=== PATIENT | female | born 1950 | race Caucasian/White ===

== ENCOUNTER 2020-04-23 01:36 | Emergency (ER) | payer OTHER ==
[2020-04-23 02:00] VITALS: BP 178/83; PULSE 90; TEMP 98.7; BMI 41.1
[2020-04-23 03:01] LABS: EPI CELLS 22 /uL (0-25.1); HYALINE CASTS 11 /uL (0-3.1); URINE APPEARANCE CLEAR; URINE BACTERIA 255 /uL (0-1359); URINE BILIRUBIN NEGATIVE (NEGATIVE); URINE COLOR YELLOW; URINE GLUCOSE (UA) NEGATIVE (NEGATIVE); URINE KETONE NEGATIVE (NEGATIVE); URINE LEUK ESTERASE 2+ (NEGATIVE); URINE NITRITE NEGATIVE (NEGATIVE); URINE PROTEIN NEGATIVE (NEGATIVE); URINE RBC 6 /uL (0-23.9); URINE WBC 332 /uL (0-25.8)
[2020-04-23] MEDS ORDERED: NITROFURANTOIN MACROCRYSTAL 50 MG CAPSULE (FP) ONE (03:12)
[2020-04-23] MEDS ORDERED: NITROFURANTOIN MACROCRYSTAL 50 MG CAPSULE (FP) PO SCH (03:15)
[2020-04-23 04:29] LABS: URINE CRYSTALS FEW /hpf
== END 2020-04-23 03:21 | disposition home or self-care (01) ==
LOC: FER 01:36
DX: N30.00 Acute cystitis without hematuria (principal)
CPT/HCPCS: 81003; 87086; 99283-25